=== PATIENT | male | born 1970 | race African-American/Black ===

== ENCOUNTER 2024-09-02 07:34 | Emergency (ER) | payer BC, OTHER ==
[~2024-09-02] VITALS: Ht 165.1 cm; Wt 121.8 kg
[2024-09-02 07:50] VITALS: TEMP 98
--- NOTE | 2024-09-02 07:59 | ED.PDOC ---
History of Present Illness HPI Comments 53 year old male presents to the ED with a chief complaint of wound check onset 2 months. Patient states he began experiencing a small scratch on RT ankle about 2 months ago, noticed is has grown over the past 2 months, and is now painful. He saw PCP 10 days ago, was prescribed Keflex with no improvement of symptoms. PMHx DM. Denies fever, chills, nausea, vomiting, diarrhea, abdominal pain, chest pain, shortness of breath. No other symptoms or modifying factors present at this time. Chief Complaint: Wound Check Time Seen by MD: 07:52 Primary Care Provider: RENEE Travis Notes: Medications, Allergies Allergies: Coded Allergies: NO KNOWN ALLERGIES (Unverified , 09/02/24) Home Meds Active Scripts Kenkmwim-Zjuwizaoex-Ttxlcuucy- (Neosporin + Pain Relief) Relf Max Oin, 1 MAX EX BID for 7 Days, #1 OIN Prov:EVELIO GUERRIER MD 09/02/24 Clindamycin Hcl (Clindamycin Hcl) 300 Mg Cap, 1 CAP PO TID for 7 Days, #21 CAP Prov:EVELIO GUERRIER MD 09/02/24 Levofloxacin Hemihydrate (LEVOFLOXACIN) 500 Mg Tab, 1 TAB PO DAILY for 7 Days, #7 TAB Prov:EVELIO GUERRIER MD 09/02/24 Information Source: Patient Mode of Arrival: Ambulatory Severity: Moderate Timing: Months Duration: Since onset Prehospital treatment: Other (Keflex) Past Medical History PAST MEDICAL HISTORY: DM Surgical History: Denies all surgeries Family History Family History: Reviewed,noncontributory to illness, No family hx of Cancer, No family hx of DM, No family hx of Heart najma, No family hx of HTN, No family hx ofKidney najma, No family hx of Liver najma, No family hx of Lung najma, No family hx of Stroke Social History Smoker: Non-Smoker Alcohol: Denies ETOH Use Drugs: Denies Drug Use Lives In: Home Musculoskeletal: reports: others (RT ankle wound) Integumetry: reports: wounds (RT ankle) Physical Exam General Appearance: Moderate Distress, Normal HEENT: Normal ENT Inspection, Pharynx Normal, TMs Normal Neck: Full Range of Motion, Non-Tender, Normal, Normal Inspection Respiratory: Chest Non-Tender, Lungs Clear, No Accessory Muscle Use, No Respiratory Distress, Normal Breath Sounds Cardiovascular: No Edema, No JVD, No Murmur, No Gallop, Normal Peripheral Pulses, Regular Rate/Rhythm Breast Exam: Deferred Gastrointestinal: No Organomegaly, Non Tender, No Pulsatile Mass, Normal Bowel Sounds, Soft Genitalia: Deferred Pelvic: Deferred Rectal: Deferred Extremities: No calf tenderness, Normal capillary refill, Normal inspection, Normal range of motion, Non-tender, No pedal edema Musculoskeletal : Apperance: Normal Neurologic: Alert, 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 Was a procedure done?: No Differential Dx Considerations may include: Cellulitis X-Ray, Labs, Meds, VS Vital Signs Date Time Temp Pulse Resp B/P (MAP) Pulse Ox O2 Delivery O2 Flow Rate FiO2 09/02/24 08:04 83 13 97 Room Air* 0 21 09/02/24 08:00 80 09/02/24 08:00 81 11 154/79 (104) 96 09/02/24 07:50 98.0 92 20 140/89 (106) 97 98.0 09/02/24 07:43 98.0 84 8 175/88 (117) 97 98.0 Current Medications Medications (Trade) Dose Ordered Sig/Mckenzie Route Start Time Stop Time Status Last Admin Acetaminophen/ Hydrocodone Bitart ([place] 10/325MG Tab) 1 tab ONCE ONCE PO 09/02/24 08:30 09/02/24 08:31 DC 09/02/24 08:36 Patient alert. Has a wound on the inner aspect of the right lower extremity pain Vitals stable. Answering all questions. On examination of the wound looks clean beefy red no sign of infection. Explained to the patient. Was given prescription of Levaquin clindamycin antibiotic. Wet-to-dry dressing. Kerlix. Let the wound breathe. No leg swelling. No shortness a breath. No chest pain. Saturation pristine on room air. Heart rate within normal limits. Respiration within normal limits. Explained to the patient about wound care. Was told to follow up with his primary care physician. Was told to come back if there is any problem. Time of 1ST Reevaluation: 08:22 Reevaluation 1ST: Improved Patient Education/Counseling: Diagnosis, Treatment, Prognosis Family Education/Counseling: No Family Present Departure 1 Departure Time of Disposition: 08:02 Impression: Primary Impression: Diabetic ulcer of ankle Disposition: 01 HOME / SELF CARE / HOMELESS Condition: Good e-Prescriptions Mmuxjcyy-Thnhzondzw-Nsldepbba- (Neosporin + Pain Relief) Relf Max Oin 1 MAX EX BID for 7 Days, #1 OIN Prov: EVELIO GUERRIER MD 09/02/24 Clindamycin Hcl (Clindamycin Hcl) 300 Mg Cap 1 CAP PO TID for 7 Days, #21 CAP Prov: EVELIO GUERRIER MD 09/02/24 Levofloxacin Hemihydrate (LEVOFLOXACIN) 500 Mg Tab 1 TAB PO DAILY for 7 Days, #7 TAB Prov: EEVLIO GUERRIER MD 09/02/24 Discharged With: Self Critical Care Note Critical Care Time?: No Stability Stability form required: No I personally scribed for EVELIO GUERRIER MD ([email or web address]) on 09/02/24 at 07:59. Electronically submitted by Roly Coello ([email or web address]). EVELIO GUERRIER MD Sep 02, 2024 07:59
[2024-09-02 08:00] VITALS: BP 154/79
[2024-09-02 08:04] VITALS: PULSE 83; RESP 13; O2SAT 97
[2024-09-02] MEDS ORDERED: CLIN1CAP70 PO (08:04)
[2024-09-02] MEDS ORDERED: LEVO500T91 PO (08:04)
[2024-09-02] MEDS ORDERED: NEOMOIN6 EX (08:04)
[2024-09-02] MEDS: HYDROcodone-ACET 10/325MG TAB PO ONE (08:36)
== END 2024-09-02 08:57 | disposition home or self-care (01) ==
LOC: ER 07:34
DX: E11.622 Type 2 diabetes mellitus with other skin ulcer (principal); Z48.00 Encounter for change or removal of nonsurgical wound dressing; Z79.899 Other long term (current) drug therapy